=== PATIENT | male | born 1965 | race Caucasian/White ===

== ENCOUNTER 2017-05-13 12:11 | Emergency (ER) | payer SELFPAY ==
[~2017-05-13] VITALS: Ht 180.3 cm; Wt 81.6 kg
[2017-05-13] MEDS ORDERED: HYDROmorphone 2 MG/ML VIAL IV ONE ×2 (12:30→13:00)
[2017-05-13] MEDS ORDERED: ONDANSETRON PF 4 MG/2 ML VIAL. IV ONE (12:30)
--- NOTE | 2017-05-13 12:35 | PHYS DOC ---
Past Medical History Past Medical History: Hypertension Additional Past Medical Histor: ulcers Past Surgical History: Other Additional Past Surgical Histo: left foot, right hand tendon repair, vasectomy Alcohol Use: Occasionally Drug Use: Marijuana Adult General Chief Complaint Chief Complaint: HIP PAIN HPI HPI Patient is a 51 year old male who presents with nontraumatic pain involving the left lower back radiating down the left leg that he describes as "hip" pain. Denies numbness tingling or weakness in the left leg. Denies saddle paresthesia or difficulty urinating or going to the bathroom. Prior history of some low back problems but never requiring surgery or medical intervention. Denies fever. Review of Systems Review of Systems Constitutional: Denies fever or chills [] Eyes: Denies change in visual acuity, redness, or eye pain [] HENT: Denies nasal congestion or sore throat [] Respiratory: Denies cough or shortness of breath [] Cardiovascular: No additional information not addressed in HPI [] GI: Denies abdominal pain, nausea, vomiting, bloody stools or diarrhea [] : Denies dysuria or hematuria [] Musculoskeletal: Denies back pain or joint pain [] Integument: Denies rash or skin lesions [] Neurologic: Denies headache, focal weakness or sensory changes [] Endocrine: Denies polyuria or polydipsia [] Current Medications Current Medications Current Medications Medications (Trade) Dose Ordered Sig/Elizabeth Start Time Stop Time Status Last Admin Dose Admin Hydromorphone HCl (Dilaudid) 1 mg 1X ONCE 05/13/17 13:00 05/13/17 13:01 DC 05/13/17 13:09 1 MG Ondansetron HCl (Zofran) 4 mg 1X ONCE 05/13/17 12:30 05/13/17 12:31 DC 05/13/17 12:38 4 MG Allergies Allergies Allergies Coded Allergies Type Severity Reaction Last Updated Verified cyclobenzaprine Adverse Reaction Intermediate 02/10/16 Yes Physical Exam Physical Exam Constitutional: Well developed, well nourished, no acute distress, non-toxic appearance. [] HENT: Normocephalic, atraumatic, bilateral external ears normal, oropharynx moist, no oral exudates, nose normal. [] Eyes: PERRLA, EOMI, conjunctiva normal, no discharge. [] Neck: Normal range of motion, no tenderness, supple, no stridor. [] Cardiovascular:Heart rate regular rhythm, no murmur [] Lungs & Thorax: Bilateral breath sounds clear to auscultation [] Abdomen: Bowel sounds normal, soft, no tenderness, no masses, no pulsatile masses. [] Skin: Warm, dry, no erythema, no rash. [] Back: No tenderness, no CVA tenderness. [] Extremities: No tenderness, no cyanosis, no clubbing, ROM intact, no edema. Pain palpation over the left buttocks but no induration or swelling. 2+ patellar reflexes 2+ pulses in the foot and ankle normal extension of the knee plantarflexion of the ankle dorsiflexion and great toes bilaterally. Mild pain to palpation left paraspinous lumbar area. [] Neurologic: Alert and oriented X 3, normal motor function, normal sensory function, no focal deficits noted. [] Psychologic: Affect normal, judgement normal, mood normal. [] Current Patient Data Vital Signs Vital Signs Date Time Temp Pulse Resp B/P (MAP) Pulse Ox O2 Delivery O2 Flow Rate FiO2 05/13/17 13:09 18 97 Room Air 05/13/17 12:11 98.5 76 156/100 (118) 98.5 EKG EKG [] Radiology/Procedures Radiology/Procedures X-ray left hip pelvis lumbar spine: Patient refused and now admits that he had all the imaging done yesterday at emergency department MRI lumbar spine patient is declining this at this time [] Course & Med Decision Making Course & Med Decision Making Pertinent Labs and Imaging studies reviewed. (See chart for details) Plan to treat symptomatically and imaging the back pelvis and left hip and reexamined. 1315 p.m.: Patient now reports admits that he was actually seen in the emergency department at yesterday had x-rays of his back pelvis and left hip that he reports were normal. Patient is neurologically intact and I was able to get him to stand up and bear some weight on both legs. Pain clearly appears to be emanating from the lumbosacral area in origin. Extensive discussion with the patient about its possibly obtaining an MRI of the lumbar spine and he is declining this at this time. I've advised him to continue his opioids and steroids as prescribed by DOUGLAS Tate Disclaimer Lea Disclaimer This electronic medical record was generated, in whole or in part, using a voice recognition dictation system. Departure Departure Impression: Primary Impression: Lumbar back pain with radiculopathy affecting left lower extremity Additional Impression: Acute back pain Disposition: HOME, SELF-CARE Condition: IMPROVED Referrals: NO PCP (PCP) Patient Instructions: Lumbosacral Radiculopathy Additional Instructions: Follow-up with her PCP this week Problem Qualifiers DUSTIN MUÑOZ MD May 13, 2017 12:35
[2017-05-13 13:09] VITALS: BP 163/95
[2017-05-13] MEDS ORDERED: KETOROLAC TROMETHAMINE 30 MG/ML INJ. IV ONE (13:30)
== END 2017-05-13 13:36 | disposition home or self-care (01) ==
LOC: ER 12:11
DX: M54.16 Radiculopathy, lumbar region (principal); I10 Essential (primary) hypertension; Z88.8 Allergy status to other drugs, medicaments and biological substances
CPT/HCPCS: 96374; 96375; 96376; 99284; J1170; J1885; J2405

== ENCOUNTER → 2017-06-01 | Outpatient (CLI) | payer OTHER ==
[2017-05-13 13:09] VITALS: BP 163/95
--- NOTE | 2017-06-01 15:54 | RAD ---
INDICATION: Low back pain and left leg radiculopathy for 3 months. TECHNIQUE: Sagittal T1, sagittal T2, sagittal STIR, axial T1, and axial T2 sequences are provided. No comparison is available. FINDINGS: There is 4 mm of retrolisthesis at L5-S1. There is otherwise no malalignment. There is mild marrow heterogeneity but no discrete worrisome marrow lesion. There is no marrow edema. There is mild diffuse disc desiccation. The conus medullaris is normal in signal intensity and in position. The numbering system assumes 5 lumbar type vertebral bodies. Findings by individual level are as follows: L1-L2: There is a left paracentral protrusion measuring 12 mm at its base and 3 to 4 mm in height. There is no high-grade canal or foraminal compromise. At L2-L3: There is a minimal disc bulge without canal or foraminal compromise. L3-L4: There is a mild disc bulge and central annular fissure without canal or foraminal compromise. L4-L5: There is a diffuse disc bulge. There is a herniation on the left which migrates superiorly into the left neural foramen measuring 17 mm craniocaudal by 6 mm transverse by 7 mm AP. This appears to be superimposed on a broad-based protrusion which extends from paracentral to extraforaminal. The broad-based component of this herniation on the left results in left lateral recess narrowing and could explain a left L5 radiculopathy, the left L5 nerve root is displaced. Foraminal narrowing on the left is moderate to severe and would explain a left L4 radiculopathy. L5-S1: There is a disc osteophyte complex which is eccentric to the left. Spur from the endplates extends into the left neural foramen and contacts the exiting nerve root, would explain an L5 radiculopathy. There is slight contact with the left S1 nerve root. There is an annular fissure on the left. There is no canal stenosis. There is mild right foraminal narrowing, disc bulge is in contact with the right exiting nerve root. There is ectasia of the infrarenal abdominal aorta with maximum AP diameter 2.4 cm. IMPRESSION: Degenerative disc disease is greatest at L4-L5 and L5-S1. Electronically signed by: Mynor Bunn MD (06/01/2017 3:51 PM) [id number]
== END | disposition home or self-care (01) ==
LOC: MRI 14:30
PROVIDERS: ATTEND Nurse Practitioner Gerontology
DX: M51.16 Intervertebral disc disorders with radiculopathy, lumbar region (principal); M51.37 Other intervertebral disc degeneration, lumbosacral region
CPT/HCPCS: 72148

== ENCOUNTER → 2017-07-03 | Outpatient (CLI) | payer OTHER ==
[~2017-07-03] MED LIST: IBUP-1027 PO; LISI-338 PO; METH-38 PO; MULT-317 PO; OMEP20CA9 PO; OXYC-323 PO; OXYC10TA PO; SENN1TAB7 PO
[2017-07-03 15:28] LABS: INR 1.1 (0.8-1.1); PROTHROMBIN TIME PATIENT 13.3 SEC (11.7-14.0)
== END | disposition home or self-care (01) ==
LOC: SURGPAT 14:19
PROVIDERS: ATTEND Neurological Surgery
DX: Z01.818 Encounter for other preprocedural examination (principal); K45.8 Other specified abdominal hernia without obstruction or gangrene; Z98.890 Other specified postprocedural states
CPT/HCPCS: 36415; 85610; 85730; 87641

== ENCOUNTER 2017-07-04 07:10 | Day surgery (SDC) | payer OTHER ==
[~2017-07-04 07:10] MED LIST changes: +BACITRACIN 50,000 UNIT in IV NORMAL SALINE 1000ML BAG 1,000 ML IRR ONE; +BUPIVACAINE 0.5% 50 ML VIAL. ONE; +BUPIVACAINE MPF 0.5% 30 ML VIAL. ONE; +GELATIN SPONGE SIZE 100. ONE; +HYDROmorphone 2 MG/ML VIAL IV PRN; +IV RINGERS,LACTATED 1000ML 1,000 ML IV SCH; +LIDOCAINE 1% PF 2 ML VIAL. ID PRN; +LIDOCAINE 1%/EPI 1:100,000 20 ML VIAL. ONE; -METH-38 PO; +ONDANSETRON PF 4 MG/2 ML VIAL. IV PRN; -OXYC-323 PO; +PROCHLORPERAZINE 10 MG/2 ML VIAL. IV PRN; -SENN1TAB7 PO; +THROMBIN TOPICAL 20,000 UNIT SPRAY.SYRN KIT TP ONE; +fentaNYL PF VIAL 100 MCG/2 ML VIAL IV PRN
[2017-07-04] MEDS ORDERED: fentaNYL PF VIAL 250 MCG/5 ML VIAL ONE (08:15)
[2017-07-04] MEDS ORDERED: MIDAZOLAM HCL/PF 2 MG/2 ML VIAL. ONE (08:15)
[2017-07-04] MEDS ORDERED: REMIFENTANIL 2 MG VIAL. IV ONE (08:15)
[2017-07-04] MEDS ORDERED: PROPOFOL 50 ML IV ONE (08:17)
[2017-07-04] MEDS ORDERED: SUCCINYLCHOLINE 200 MG/10 ML VIAL. ONE (08:20)
[2017-07-04] MEDS ORDERED: MINERAL OIL/PETROLATUM,WHITE OPHTH OINT 3.5GM TUBE. ONE (08:40)
[2017-07-04] MEDS ORDERED: LIDOCAINE 2% PF Vial for OR 5 ML VIAL. ONE (10:18)
[2017-07-04] MEDS ORDERED: ONDANSETRON PF 4 MG/2 ML VIAL. ONE (10:18)
[2017-07-04] MEDS ORDERED: PHENYLEPHRINE in 0.9% NACL PF 1 MG/10 ML DISP.SYRIN. IV ONE (10:18)
[2017-07-04] MEDS ORDERED: PROPOFOL 20 ML IV ONE (10:18)
[2017-07-04] MEDS ORDERED: DESFLURANE > 120 MINUTES IH ONE (10:18)
[2017-07-04] MEDS ORDERED: DEXAMETHASONE SOD PHOS 20 MG/5 ML VIAL. ONE (10:18)
--- NOTE | 2017-07-04 10:56 | PDOC ---
BRIEF OPERATIVE NOTE Date: Jul 04, 2017 Pre-Op Diagnosis lumbar disk herniation, lumbar radiculopathy Post-Op Diagnosis same Procedure Performed left L4-5 hemilaminotomy with discectomy Surgeon Joe Tractor Trailer Driver none Anesthesia Type: General Blood Loss 25mL Specimens Obtained disk and decompression Findings prominent disk herniation left L4-5 with mass effect, neuromonitoring remained at least baseline throughout the procedure Complications none apparent BONNIE VITAL MD Jul 04, 2017 10:56
--- NOTE | 2017-07-04 10:59 | DISCH ---
DISCHARGE INSTRUCTIONS Condition on Discharge Condition on Discharge: Stable Activity After Discharge Activity Instructions for Disc: Avoid exertion, Progressive ambulation, Other, see below (avoid strenuous activity; no lifting more than 10lbs; avoid excess twisting or bending) Lifting Instructions after Dis: Do not lift >10 pounds Wound Incision Care Wound/Incision Care: Ice to area for comfort, Other, see below (may remove dressing day 3 after surgery; keep incision clean and dry; do not soak, scrub, or submerge incision) Contacting the after DC Call your doctor for: Concerns you may have Follow-Up Follow up with: Dr. Vital in two weeks [phone] BONNIE VITAL MD Jul 04, 2017 10:59
[2017-07-04] MEDS: MORPHINE SULFATE 2 MG/ML DISP.SYRIN. IV PRN ×2 (11:22→11:42)
[2017-07-04] MEDS: fentaNYL PF VIAL 100 MCG/2 ML VIAL IV PRN ×4 (11:23→12:30)
[2017-07-04] MEDS ORDERED: OXYC-323 PO (11:58)
[2017-07-04] MEDS ORDERED: METH-38 PO (11:59)
[2017-07-04] MEDS ORDERED: oxyCODONE/APAP 5/325 1 TAB TABLET PO ONE (12:00)
[2017-07-04] MEDS ORDERED: SENN1TAB7 PO (12:19)
--- NOTE | 2017-07-04 12:21 | OP ---
DATE OF SURGERY: 07/04/2017 SURGEON: Gonzalo Vital MD RESCUE WORKER: None. PREOPERATIVE DIAGNOSES: Lumbar radiculopathy, lumbar disk herniation, weakness. POSTOPERATIVE DIAGNOSES: Lumbar radiculopathy, lumbar disk herniation, weakness. PROCEDURE: Left lumbar 4-5 hemilaminectomy with discectomy. ANESTHESIA: General. COMPLICATIONS: None intra-procedurally. INDICATIONS FOR THE PROCEDURE: The patient is a 51-year-old gentleman with left lower extremity pain as well as some knee extensor weakness. There is a prominent disk herniation left lumbar 4-5 with extension into the neuroforamina. He has been refractory to nonsurgical treatments. Please refer to the patient's chart for additional detail. DESCRIPTION OF PROCEDURE: After informed consent was obtained, the patient was brought into the operating room. He was placed under general anesthesia. Neuro monitoring was instituted and baseline potentials were obtained. The patient was turned into the prone position on the Casimiro frame. All pressure points were checked and padded appropriately. The lumbar region was prepped and draped in the usual sterile fashion. Fluoroscopy was utilized to localize an appropriate incision location and a vertical incision centered over the region of lumbar 4-5 was made with a 10 blade scalpel. Monopolar electrocautery was utilized to dissect the avascular midline to the spinous processes of lumbar 4- 5. Dissection was extended leftward laterally across the lamina at this location. Level was verified again with fluoroscopy prior to the initiation of decompression. A left lumbar 4-5 hemilaminotomy was performed with a pneumatic drill as well as a Kerrison rongeur. The underlying ligament was gently dissected free with a blunt nerve hook and a Joanie and removed with a Kerrison rongeur. The underlying neural elements were identified and gently retracted medially. The annulus was identified. The annulus was noted to be quite prominent and there was mass effect on the adjacent thecal sac and neural elements. A small annulotomy was performed with an 11 blade scalpel. Disk material emerged under pressure. Disk material was gently teased posterolaterally with a blunt nerve hook as well as a [place] and removed in a piecemeal fashion with a pituitary rongeur. A significant amount of disk material was removed in this fashion and upon completion of this, the adjacent neural elements were noted to be very well decompressed. This was verified with direct visualization as well as gentle palpation with a [place] and a Hein ball probe. The wound was generously irrigated with antibiotic irrigation. Pristine hemostasis was achieved with FloSeal, cottonoids, and some use of bipolar electrocautery. Once this was complete, the muscle and fascia was reapproximated with 0 Vicryl in a simple interrupted fashion. The subcutaneous tissues were reapproximated with 2-0 Vicryl in an interrupted inverted fashion. The skin was reapproximated with 4-0 Vicryl in a running subcuticular fashion. Mastisol and Steri-Strips were applied and the wound was dressed with Telfa and Tegaderm. At the end of procedure, all needle and sponge counts were correct x 2. The patient was extubated in the operating room and sent to recovery in stable condition. There were no intra-procedural complications apparent. Neuromonitoring potentials were noted to be at least at baseline throughout the entire procedure. GONZALO VITAL MD DR: EDELMIRA/myriam JOB#: [id number] / [id number] DOMENICO
[2017-07-04 12:45] VITALS: BP 132/77
--- NOTE | 2017-07-05 14:18 | PATHOLOGY ---
PATHOLOGY REPORT * * * * * * * * FINAL DIAGNOSIS: Segments of fibrocartilaginous and fibroadipose tissue and minute segments of bone, lumbar disc and decompression: - Degenerative changes of fibrocartilaginous tissue. (JPM:sarah; 07/05/2017) COMMENT: There is no evidence of an acute inflammatory process or malignancy. (JPM:sarah; 07/05/2017) REPORT ELECTRONICALLY SIGNED BY: Roberto Munoz M.D. DATE/TIME: 07/05/2017 14:18 * * * * * * * * GROSS PATHOLOGY: Received in formalin labeled "Gurvinder Vaughn, lumbar disc and decompression," are multiple segments of reyes rubbery and gritty tissue measuring 4.6 x 3.5 x 1.0 cm in aggregate dimensions containing small segments of possible bone. The tissue is submitted representatively in cassette A1, following decalcification. (TSD; 07/04/2017) INITIAL CPT CODE(S): A; 73526, 73587 Professional services performed [place] [facility] [address] Technical services performed by [facility] at [address] [place] [address] [address] [address]. SPECIMEN(S) RECEIVED: A.Lumbar disc and decompression CLINICAL HISTORY: Herniated lumbar intervertebral disc, lumbar spondylosis, radiculopathy, back pain PATIENT: GURVINDER VAUGHN /AGE: 210/22/1965 (Age: 51) PATIENT #: [id number] ALT CASE #: SPECIMEN COLLECTION DATE: 07/04/2017 SPECIMEN RECEIVED DATE: 07/04/2017 [facility] - [address] [place] [address] - PHONE: [phone] * * * END OF REPORT * * *
== END 2017-07-04 13:30 | disposition home or self-care (01) ==
LOC: SURG 07:10
PROVIDERS: ATTEND Neurological Surgery
DX: M51.16 Intervertebral disc disorders with radiculopathy, lumbar region (principal); I10 Essential (primary) hypertension; M19.91 Primary osteoarthritis, unspecified site; F32.9 Major depressive disorder, single episode, unspecified; F17.200 Nicotine dependence, unspecified, uncomplicated; Z72.89 Other problems related to lifestyle; Z86.69 Personal history of other diseases of the nervous system and sense organs; Z87.39 Personal history of other diseases of the musculoskeletal system and connective tissue; Z72.0 Tobacco use; Z88.6 Allergy status to analgesic agent
CPT/HCPCS: 63030; 76000; 97162; 97530; G8978; G8979; G8980; J0330; J0690; J0780; J1100; J2250; J2270; J2370; J2405; J2704; J3010; J3490; J7030; J7120; 88304; 88311; J2001